=== PATIENT | male | born 1945 | race Two or more races ===

== ENCOUNTER 2016-09-13 08:43 | Emergency (ER) | payer MEDICARE ==
[~2016-09-13 08:43] MED LIST: CARDIZEM SR60 MG PO; LASIX20 MG PO; METOPROLOL TART50 MG PO; TOPROL XL50 MG PO
== END 2016-09-13 09:12 | disposition home or self-care (01) ==
LOC: D.ER 08:43
DX: K02.9 Dental caries, unspecified (principal); K08.89 Other specified disorders of teeth and supporting structures; I10 Essential (primary) hypertension; I50.9 Heart failure, unspecified

== ENCOUNTER 2016-09-18 06:36 | Emergency (ER) | payer MEDICARE | END 2016-09-18 07:50 | disposition home or self-care (01) | LOC: D.ER 06:36 | DX: K02.9 Dental caries, unspecified (principal); K08.89 Other specified disorders of teeth and supporting structures; I10 Essential (primary) hypertension; I50.9 Heart failure, unspecified ==

== ENCOUNTER 2016-10-03 11:01 | Emergency (ER) | payer MEDICARE | END 2016-10-03 11:02 | disposition left against medical advice (07) | LOC: D.ER 11:01 | DX: Z02.9 Encounter for administrative examinations, unspecified (principal) ==

== ENCOUNTER 2016-10-09 11:15 | Emergency (ER) | payer MEDICARE | END 2016-10-09 11:55 | disposition left against medical advice (07) | LOC: D.ER 11:15 | DX: I49.9 Cardiac arrhythmia, unspecified (principal) ==

== ENCOUNTER 2016-10-10 07:03 | Emergency (ER) | payer MEDICARE | END 2016-10-10 07:32 | disposition home or self-care (01) | LOC: D.ER 07:03 | DX: K02.9 Dental caries, unspecified (principal); I10 Essential (primary) hypertension ==

== ENCOUNTER 2016-10-28 11:22 | Emergency (ER) | payer MEDICARE | END 2016-10-28 12:59 | disposition left against medical advice (07) | LOC: D.ER 11:22 | DX: M54.5 Low back pain (principal) ==

== ENCOUNTER 2016-11-12 08:38 | Emergency (ER) | payer MEDICARE | END 2016-11-12 09:27 | disposition home or self-care (01) | LOC: D.ER 08:38 | DX: K08.89 Other specified disorders of teeth and supporting structures (principal); I10 Essential (primary) hypertension; R68.84 Jaw pain ==

== ENCOUNTER 2016-12-11 08:21 | Emergency (ER) | payer MEDICARE ==
[2016-12-11 09:02] LABS: APPEARANCE CLEAR (CLEAR); BACTERIA FEW /hpf (NONE SEEN); BILIRUBIN NEGATIVE (NEGATIVE); COLOR YELLOW (YELLOW); EPITHELIAL CELLS RARE /hpf (0-5); GLUCOSE NEGATIVE (NEGATIVE); HYALINE CAST OCC /lpf (NONE SEEN); KETONE NEGATIVE (NEGATIVE); LEUKOCYTE ESTERASE TRACE (NEGATIVE); MUCUS <1+ /lpf (NONE SEEN); NITRITE NEGATIVE (NEGATIVE); PROTEIN TRACE mg/dL (NEGATIVE); SPECIFIC GRAVITY 1.015 (1.005-1.020); UROBILINOGEN NORMAL (NORMAL); WHITE CELLS - URINE 0-5 /hpf (0-5)
[2016-12-11 09:03] LABS: BASOPHILS 0.4 % (0-2); HEMATOCRIT 36.5 % (42.0-54.0); HEMOGLOBIN 12.3 g/dL (13.5-17.5); IMMATURE GRANULOCYTES 0.2 % (0-5); MCH 30.8 pg (26.0-34.0); MCHC 33.7 g/dL (31.0-37.0); MCV 91.5 fL (80.0-100.0); MEAN PLATELET VOLUME 11.4 fL (7.4-10.4); MONOCYTES 8.3 % (2-11); NEUTROPHILS 54.1 % (40-80); RBC 3.99 10x6/uL (4.20-6.10); RDW 13.3 % (11.5-14.5); WBC 5.5 10x3/uL (4.8-10.8)
[2016-12-11 09:04] LABS: PLATELET COUNT 138 10x3/uL (130-400)
[2016-12-11 09:19] LABS: ALBUMIN 3.7 g/dL (3.4-5.0); ANION GAP 13.6 mmol/L (8-16); BILIRUBIN - TOTAL 0.4 mg/dL (0.2-1.3); CALCIUM 8.5 mg/dL (8.5-10.1); CREATININE - SERUM 1.5 mg/dL (0.6-1.3); POTASSIUM - SERUM 4.6 mmol/L (3.5-5.1); PROTEIN - SERUM 8.1 g/dL (6.4-8.2)
== END 2016-12-11 09:41 | disposition home or self-care (01) ==
LOC: D.ER 08:21
PROVIDERS: Emergency Medicine
DX: K40.90 Unilateral inguinal hernia, without obstruction or gangrene, not specified as recurrent (principal); I10 Essential (primary) hypertension

== ENCOUNTER 2017-03-22 07:46 | Emergency (ER) | payer MEDICARE | END 2017-03-22 08:23 | disposition home or self-care (01) | LOC: D.ER 07:46 | DX: K46.9 Unspecified abdominal hernia without obstruction or gangrene (principal); I10 Essential (primary) hypertension ==

== ENCOUNTER 2017-04-11 09:56 | Emergency (ER) | payer MEDICARE | END 2017-04-11 10:22 | disposition home or self-care (01) | LOC: D.ER 09:56 | DX: K40.90 Unilateral inguinal hernia, without obstruction or gangrene, not specified as recurrent (principal); I10 Essential (primary) hypertension ==

== ENCOUNTER 2017-04-14 09:22 | Emergency (ER) | payer MEDICARE | END 2017-04-14 10:50 | disposition home or self-care (01) | LOC: D.ER 09:22 | DX: M54.5 Low back pain (principal); M54.9 Dorsalgia, unspecified; M19.91 Primary osteoarthritis, unspecified site; I10 Essential (primary) hypertension ==

== ENCOUNTER 2017-04-21 10:54 | Emergency (ER) | payer MEDICARE | END 2017-04-21 16:19 | disposition home or self-care (01) | LOC: D.ER 10:54 | DX: K04.7 Periapical abscess without sinus (principal); K02.9 Dental caries, unspecified; K08.89 Other specified disorders of teeth and supporting structures; I10 Essential (primary) hypertension ==

== ENCOUNTER 2017-04-30 08:49 | Emergency (ER) | payer MEDICARE ==
[2017-04-30 09:52] LABS: BASOPHILS 0.1 % (0-2); EOSINOPHILS 4.6 % (0-7); HEMATOCRIT 37.7 % (42.0-54.0); HEMOGLOBIN 12.6 g/dL (13.5-17.5); IMMATURE GRANULOCYTES 0.1 % (0-5); MCH 29.5 pg (26.0-34.0); MCHC 33.4 g/dL (31.0-37.0); MCV 88.3 fL (80.0-100.0); MEAN PLATELET VOLUME 11.4 fL (7.4-10.4); MONOCYTES 7.8 % (2-11); NEUTROPHILS 60.4 % (40-80); PLATELET COUNT 136 10x3/uL (130-400); RBC 4.27 10x6/uL (4.20-6.10); RDW 13.3 % (11.5-14.5); WBC 6.7 10x3/uL (4.8-10.8)
== END 2017-04-30 10:48 | disposition home or self-care (01) ==
LOC: D.ER 08:49
PROVIDERS: Emergency Medicine
DX: K40.90 Unilateral inguinal hernia, without obstruction or gangrene, not specified as recurrent (principal); M25.561 Pain in right knee; M79.661 Pain in right lower leg; M79.671 Pain in right foot

== ENCOUNTER 2017-05-18 09:46 | Emergency (ER) | payer MEDICARE ==
[2017-05-18 10:17] LABS: BASOPHILS 0.1 % (0-2); HEMATOCRIT 36.5 % (42.0-54.0); HEMOGLOBIN 12.6 g/dL (13.5-17.5); IMMATURE GRANULOCYTES 0.1 % (0-5); MCH 29.9 pg (26.0-34.0); MCHC 34.5 g/dL (31.0-37.0); MCV 86.5 fL (80.0-100.0); MEAN PLATELET VOLUME 11.4 fL (7.4-10.4); MONOCYTES 3.8 % (2-11); PLATELET COUNT 133 10x3/uL (130-400); RBC 4.22 10x6/uL (4.20-6.10); RDW 13.7 % (11.5-14.5); WBC 8.7 10x3/uL (4.8-10.8)
[2017-05-18 10:34] LABS: ANION GAP 15.2 mmol/L (8-16); BILIRUBIN - TOTAL 0.5 mg/dL (0.2-1.3); CALCIUM 9.5 mg/dL (8.5-10.1); CARBON DIOXIDE 22.4 mmol/L (21.0-32.0); CREATININE - SERUM 1.7 mg/dL (0.6-1.3); POTASSIUM - SERUM 5.6 mmol/L (3.5-5.1); PROTEIN - SERUM 8.6 g/dL (6.4-8.2)
[2017-05-18 11:32] LABS: CREATINE KINASE 55 UL (21-232); PRO BNP 1512 pg/mL (0-125)
[2017-05-18 11:38] LABS: TROPONIN-I < 0.017 ng/mL (0.000-0.060)
[2017-05-18 12:21] LABS: APPEARANCE CLEAR (CLEAR); COLOR STRAW (YELLOW)
[2017-05-18 12:22] LABS: BILIRUBIN NEGATIVE (NEGATIVE); GLUCOSE NEGATIVE (NEGATIVE); KETONE NEGATIVE (NEGATIVE); NITRITE NEGATIVE (NEGATIVE); PROTEIN NEGATIVE (NEGATIVE); SPECIFIC GRAVITY 1.015 (1.005-1.020); UROBILINOGEN NORMAL (NORMAL)
== END 2017-05-18 16:30 | disposition home or self-care (01) ==
LOC: D.ER 09:46
PROVIDERS: Family Medicine; Nurse Practitioner Family
DX: J20.9 Acute bronchitis, unspecified (principal); I50.9 Heart failure, unspecified; I71.9 Aortic aneurysm of unspecified site, without rupture

== ENCOUNTER 2017-08-11 09:56 | Emergency (ER) | payer MEDICARE | END 2017-08-11 10:58 | disposition home or self-care (01) | LOC: D.ER 09:56 | DX: K40.90 Unilateral inguinal hernia, without obstruction or gangrene, not specified as recurrent (principal); I50.9 Heart failure, unspecified ==

== ENCOUNTER 2017-09-26 05:50 | Emergency (ER) | payer MEDICARE ==
[~2017-09-26] VITALS: Ht 162.6 cm; Wt 65.9 kg
[2017-09-26 05:53] VITALS: BP 150/92; Ht 162.6 cm; Wt 65.9 kg
[2017-09-26] MEDS ORDERED: NORCO 7.5/325 T1 TA1 PO (06:08)
[2017-09-26] MEDS ORDERED: CLEOCIN HCL300 MG PO (06:08)
== END 2017-09-26 06:22 | disposition home or self-care (01) ==
LOC: D.ER 05:50
DX: K02.9 Dental caries, unspecified (principal)

== ENCOUNTER 2017-11-10 11:13 | Emergency (ER) | payer MEDICARE ==
[~2017-11-10] VITALS: Ht 162.6 cm; Wt 65.9 kg
[~2017-11-10 11:13] MED LIST changes: +CLEOCIN HCL300 MG PO; +NORCO 7.5/325 T1 TA1 PO
[2017-11-10 11:20] VITALS: BP 110/64; Ht 162.6 cm; Wt 65.9 kg
[2017-11-10] MEDS ORDERED: CLEOCIN HCL300 MG PO (12:31)
[2017-11-10] MEDS ORDERED: EC-NAPROSYN500 MG PO (12:31)
== END 2017-11-10 12:47 | disposition home or self-care (01) ==
LOC: D.ER 11:13
DX: K02.9 Dental caries, unspecified (principal); K08.89 Other specified disorders of teeth and supporting structures; I10 Essential (primary) hypertension

== ENCOUNTER 2019-05-17 10:26 | Emergency (ER) | payer OTHER, MEDICARE ==
[~2019-05-17] VITALS: Ht 162.6 cm; Wt 65.9 kg
[~2019-05-17 10:26] MED LIST changes: +EC-NAPROSYN500 MG PO
[2019-05-17 10:29] VITALS: Ht 162.6 cm; Wt 65.9 kg
[2019-05-17 11:42] LABS: BASOPHILS 0.3 % (0-2); EOSINOPHILS 3.2 % (0-7); HEMATOCRIT 37.2 % (42.0-54.0); HEMOGLOBIN 12.7 g/dL (13.5-17.5); IMMATURE GRANULOCYTES 0.4 % (0-5); LYMPHOCYTES 19.1 % (15-50); MCHC 34.1 g/dL (31.0-37.0); MCV 87.9 fL (80.0-100.0); MEAN PLATELET VOLUME 10.6 fL (7.4-10.4); MONOCYTES 6.8 % (2-11); NEUTROPHILS 70.2 % (40-80); PLATELET COUNT 197 10x3/uL (130-400); RBC 4.23 10x6/uL (4.20-6.10); RDW 13.6 % (11.5-14.5); WBC 6.8 10x3/uL (4.8-10.8)
[2019-05-17 11:46] LABS: ANION GAP 10.7 mmol/L (8-16); CALCIUM 9.1 mg/dL (8.5-10.1); CREATININE - SERUM 1.5 mg/dL (0.6-1.3); POTASSIUM - SERUM 4.7 mmol/L (3.5-5.1)
[2019-05-17 11:48] LABS: APTT 27.3 SECONDS (22.8-39.4); INR 0.99 (0.85-1.17)
[2019-05-17 11:53] LABS: ALBUMIN 3.7 g/dL (3.4-5.0); BILIRUBIN - TOTAL 0.27 mg/dL (0.2-1.3); PROTEIN - SERUM 7.9 g/dL (6.4-8.2)
[2019-05-17 11:56] LABS: BILIRUBIN NEGATIVE (NEGATIVE); GLUCOSE NEGATIVE (NEGATIVE); KETONE NEGATIVE (NEGATIVE); NITRITE NEGATIVE (NEGATIVE); UROBILINOGEN NORMAL (NORMAL)
[2019-05-17] MEDS ORDERED: MEDROL DOSE PACK4 MG PO (12:33)
[2019-05-17] MEDS ORDERED: LIORESAL 10 MG10 MG PO (12:33)
[2019-05-17 12:45] VITALS: BP 173/83
== END 2019-05-17 13:08 | disposition home or self-care (01) ==
LOC: D.ER 10:26
PROVIDERS: Family Medicine
DX: S13.9XXA Sprain of joints and ligaments of unspecified parts of neck, initial encounter (principal); M54.9 Dorsalgia, unspecified; S39.012A Strain of muscle, fascia and tendon of lower back, initial encounter; V89.2XXA Person injured in unspecified motor-vehicle accident, traffic, initial encounter; Y93.9 Activity, unspecified; Y92.9 Unspecified place or not applicable